=== PATIENT | female | born 2000 | race Hispanic/Latino ===

== ENCOUNTER 2023-01-15 22:20 | Emergency (ER) | payer OTHER ==
[~2023-01-15] VITALS: Ht 162.6 cm; Wt 59.9 kg
[2023-01-15] MEDS ORDERED: SOLU-MEDROL 125MG VIAL ONE (23:13)
[2023-01-15 23:26] VITALS: BP 133/77
[2023-01-15] MEDS ORDERED: SOLU-MEDROL 125MG VIAL IM ONE (23:30)
== END 2023-01-16 00:08 | disposition home or self-care (01) ==
LOC: EDH 22:20
DX: L29.9 Pruritus, unspecified (principal); R21 Rash and other nonspecific skin eruption; Z98.890 Other specified postprocedural states
CPT/HCPCS: 99283; 96372; J2930